=== PATIENT | female | born 1970 | race African-American/Black ===

== ENCOUNTER 2020-07-11 18:12 | Outpatient (CLI) | payer OTHER, SELFPAY ==
--- NOTE | ~2020-07-11 | XR_ITS ---
EXAMINATION: XR chest 2V EXAM DATE: 07/11/2020 18:35 INDICATION: R05 - Cough, SOB, COVID + X 1 month ago. TECHNIQUE: Frontal and lateral projections of the chest obtained and reviewed. Comparison is made to prior examination from 08/04/2017. FINDINGS: The lungs are clear. There are no pleural effusions. The cardiomediastinal silhouette is within normal limits. There is no pneumothorax suspected. The bones and soft tissues are unremarkab le. Goiter deviating trachea to the right. IMPRESSION: 1. No acute cardiopulmonary findings. 2. Goiter. Reviewed, dictated and finalized at location A. LE MECHANIC HELPER
== END 2020-07-11 18:13 | disposition home or self-care (01) ==
PROVIDERS: PCP Internal Medicine; Visit Provider Nurse Practitioner
DX: R05 Cough (principal); R06.02 Shortness of breath; E04.9 Nontoxic goiter, unspecified
CPT/HCPCS: 71046

== ENCOUNTER 2020-07-15 15:44 | Outpatient (CLI) | payer OTHER, SELFPAY ==
--- NOTE | 2020-07-15 15:59 | ECG_ITS ---
Measurements Intervals [place] Rate: 93 P: 56 AK: 146 QRS: -28 QRSD: 73 T: 7 QT: 358 QTc: 446 Interpretive Statements SINUS RHYTHM POOR R WAVE PROGRESSION, ANTERIOR LEADS BORDERLINE T WAVE ABNORMALITY- INFERIOR LEADS BASELINE ARTIFACT- I, II, III, AVF BORDERLINE ECG Electronically Signed On 07-15-2020 16:31:45 [employer] by Eren Flores D.O.
[2020-07-15 16:48] LABS: Thyroid Stimulating Hormone 0.635 uIU/mL (0.465-4.680)
[2020-07-15 18:13] LABS: Free T4 Free Thyroxine 0.98 ng/mL (0.78-2.19)
[2020-07-17 19:25] LABS: Thyroid Peroxidase Antibodies 2 IU/mL (<9)
[2020-07-20 07:46] LABS: Triiodothyronine T3 Free 3.2 pg/mL (2.3-4.2)
== END 2020-07-15 15:45 | disposition home or self-care (01) ==
LOC: ANHLAB 15:46
PROVIDERS: PCP Internal Medicine; Visit Provider Nurse Practitioner
DX: E04.9 Nontoxic goiter, unspecified (principal); R06.02 Shortness of breath
CPT/HCPCS: 36415; 84439; 84443; 84481; 86376; 93005

== ENCOUNTER 2020-07-18 10:21 | Outpatient (CLI) | payer OTHER, SELFPAY ==
--- NOTE | ~2020-07-18 | US_ITS ---
EXAMINATION: US thyroid DATE: 07/18/2020 10:57 INDICATION: Nontoxic goiter with thyroid enlargement TECHNIQUE: Multiple ultrasound images of the thyroid were obtained. COMPARISON: 09/25/2014 FINDINGS: The right thyroid lobe measures 6.4 x 2.9 x 3.0 cm. The left thyroid lobe measures 7.9 x 6.8 x 5.6 c m. There are multiple thyroid nodules. Minimal increase in size of a now 2.2 cm, previous a 2.0 cm, h ypoechoic solid nodule with coarse calcifications in the inferior right thyroid (TI-RADS 4, moderatel y suspicious , FNA if >=1.5 cm, annual followup is >1 cm). Minimal increase in size of a now 4.8, pre viously 4.3 cm solid hypoechoic TI RADS 4 nodule in the inferior left thyroid. No interval change in a 2.8 cm solid isoechoic (TI-RADS 3, mildly suspicious , FNA if >=2.5 cm, annual followup is >1.5 cm) nodule at the left side of the thyroid isthmus. The 2 left-sided nodules along with a third left-corinna ed nodule which is not discretely imaged in the current study were all biopsied on 10/17/2014 and the nodule at the inferior right thyroid was biopsied on 10/20/2011. Pathology results for the biopsies is unavailable on the computer record. IMPRESSION: 1. Multinodular goiter with mild increase in size of the 3 largest nodules, 2 on the left which were biopsied on 10/17/2014 and one on the right which was biopsied on 10/20/2011. Correlate with results fr om prior biopsy. The degree of interval enlargement is not yet sufficient to warrant repeat biopsy at this time. Reviewed, dictated and finalized at location A. ID INTERN IMPRESSION: 1. Multinodular goiter with mild increase in size of the 3 largest nodules, 2 o n the left which were biopsied on 10/17/2014 and one on the right which was biop sied on 10/20/2011. Correlate with results from prior biopsy. The degree of inte rval enlargement is not yet sufficient to warrant repeat biopsy at this time.
== END 2020-07-18 10:22 | disposition home or self-care (01) ==
PROVIDERS: PCP Internal Medicine; Visit Provider Nurse Practitioner
DX: E04.2 Nontoxic multinodular goiter (principal)
CPT/HCPCS: 76536

== ENCOUNTER 2020-07-30 12:28 | Outpatient (CLI) | payer OTHER, SELFPAY ==
--- NOTE | ~2020-07-30 | US_ITS ---
EXAMINATION: 1. US FNA w image guidance 2. US FNA additional DATE: 07/30/2020 13:34 INDICATION: Nontoxic multinodular goiter. TECHNIQUE: The procedure and its benefits and risks were discussed with the patient. Risks specifically discusse d included bleeding. The patient verbalized understanding of the risks and agreed to proceed. The nec k was prepped and draped in the usual sterile manner. 1% lidocaine was used for local anesthesia. F lissette passes were made with a 25G needle into the lesion in right thyroid lobe under ultrasound guidanc e. Five passes were made with a 25G needle into the lesion in left thyroid lobe under ultrasound guidanc e. There were no immediate complications. The patient understood to call the ordering physician for results after a week and a half and verbalized that understanding. FINDINGS: Grayscale ultrasound images demonstrate needles advanced into a 2.2 cm right thyroid nodule for biops y. Grayscale ultrasound images demonstrate needles advanced into a 4.8 cm left thyroid nodule for bio psy. IMPRESSION: 1. Ultrasound-guided fine needle aspiration of a 2.2 cm right thyroid nodule. 2. Ultrasound-guided fine-needle aspiration of a 4.8 cm left thyroid nodule. Reviewed, dictated and finalized at location A. [employer] ORCHESTRA IMPRESSION: 1. Ultrasound-guided fine needle aspiration of a 2.2 cm right thyroid nodule. 2. Ultrasound-guided fine-needle aspiration of a 4.8 cm left thyroid nodule.
== END 2020-07-30 12:29 | disposition home or self-care (01) ==
PROVIDERS: PCP Internal Medicine; Visit Provider Otolaryngology
DX: E04.2 Nontoxic multinodular goiter (principal)
CPT/HCPCS: 10005; 10006; 88173; 88305

== ENCOUNTER 2021-07-02 06:13 | Emergency (ER) | payer OTHER, SELFPAY ==
--- NOTE | ~2021-07-02 | XR_ITS ---
EXAMINATION: XR shoulder LT min 2V DATE: 07/02/2021 06:31 INDICATION: Left shoulder pain post ground-level fall TECHNIQUE: AP internally and externally rotated, AP oblique externally rotated and axillary views of the left shoulder were obtained. COMPARISON: None FINDINGS: Borderline widening of the acromioclavicular joint space which suggests possible low-grade acromiocla vicular joint separation. Alignment is otherwise normal. No fracture. Mild glenohumeral osteoarthriti s with slight nonuniform joint space narrowing and tiny marginal osteophytes. Subtle dystrophic calci fication along the middle facet of the greater tuberosity consistent with calcific tendinitis. Athero sclerotic calcifications along the left carotid bulb and left axillary artery. IMPRESSION: Possible low-grade left acromioclavicular joint separation. Reviewed, dictated and finalized at location A. S AND DISTRIBUTION CLERK
[2021-07-02 06:33] VITALS: BP 151/81; PULSE 88; RESP 20; TEMP 36.3; O2SAT 99
--- NOTE | 2021-07-02 07:29 | ED.FALL ---
HPI - Fall General Chief Complaint: Fall Stated Complaint: fall, L shoulder pain Time Seen by Provider: 07/02/21 07:27 Source: patient Mode of arrival: ambulatory Limitations: no limitations History of Present Illness HPI Narrative: Patient had a fall on ice yesterday morning, landed on the left shoulder, denies other injuries. Does not take blood thinner, denies head or neck injury. Complaining of slight diffuse tenderness left shoulder anteriorly Related Data Home Medications Medication Instructions Recorded Confirmed methotrexate sodium 2.5 mg tablet 10 mg PO WEEKLY tablet 05/18/19 12/26/20 timolol maleate 0.5 % eye drops 1 drp EACH EYE DAILY ml 05/01/20 12/26/20 tofacitinib 11 mg tablet,extended 11 mg PO DAILY 07/18/20 12/26/20 release 24 hr brimonidine 0.1 % eye drops 1 drp EACH EYE Q8H 07/24/20 12/26/20 prednisone 10 mg tablet 15 mg PO DAILY tablet 12/26/20 12/26/20 Allergies Allergy/AdvReac Type Severity Reaction Status Date / Time No Known Allergies Allergy Unverified 05/09/18 12:34 Review of Systems Review of Systems: CONSTITUTIONAL: Denies fever, chills, or sweats. EYES: Denies visual changes, redness, or discharge. ENT: Denies rhinorrhea, congestion, sore throat, or otalgia. CARDIOVASCULAR: Denies chest pain, palpitations, or edema. RESPIRATORY: Denies cough or dyspnea. GASTROINTESTINAL: Denies abdominal pain, nausea, vomiting, or diarrhea. GENITOURINARY: Denies dysuria or hematuria. SKIN: Denies rash or itching. MUSCULOSKELETAL: Denies back pain, joint pain, or myalgia. NEUROLOGIC: Denies headache, numbness, or weakness. PSYCHIATRIC: Denies anxiety or depression. [facility]LY [facility] Past Medical History Medical History Anxiety Goiter Herpes zoster involving cervical dermatome Hyperlipidemia Leukocytosis Rheumatoid arthritis Type 2 diabetes mellitus Family History Family History Mother Patient's mother is in good health Father History of quadruple bypass Other Cerebrovascular accident Diabetes mellitus Hypertension Social History Social History Smoking status: Never smoker Alcohol intake: current Alcohol use details: socially Exam Narrative: General appearance: Well-developed, well-nourished Skin: Normal color Head: Normocephalic, nontraumatic Eyes: Clear conjunctiva ENT: Oropharynx normal, ears normal, nose normal Neck: Supple, nontender Chest and respiratory: Airway patent, no respiratory distress, no accessory muscle use Heart: Regular rate/rhythm Abdomen: Soft, nontender, no organomegaly, quiet bowel sounds Vascular: Normal peripheral pulses, normal capillary refill. 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 Chart differential diagnosis as below Differential Diagnosis Differential diagn
== END 2021-07-02 07:55 | disposition home or self-care (01) ==
PROVIDERS: Emergency Provider Emergency Medicine; PCP Internal Medicine
DX: S43.102A Unspecified dislocation of left acromioclavicular joint, initial encounter (principal); F41.9 Anxiety disorder, unspecified; M06.9 Rheumatoid arthritis, unspecified; E11.9 Type 2 diabetes mellitus without complications; W00.0XXA Fall on same level due to ice and snow, initial encounter
CPT/HCPCS: 73030; 99283; A4565